=== PATIENT | female | born 1975 | race Caucasian/White ===

== ENCOUNTER 2018-11-08 19:09 | Emergency (ER) | payer MEDICAID, OTHER ==
[2018-11-08 19:28] VITALS: BP 147/79
--- NOTE | 2018-11-08 19:35 | UC ---
UC General HPI - HPI Summary HPI Summary: per triage, Onset one wk ago of vaginal odor, thick, creamy discharge; pt. has felt feverish past 2 days. Pt. denies urinary freqency or pain. hx BV and this is similar. doubts std but does have a new new partner - History of Current Complaint Chief Complaint: UCGU Stated Complaint: PERSONAL Time Seen by Provider: 11/08/18 19:25 Hx Obtained From: Patient Hx Last Menstrual Period: 10/27/18 Onset/Duration: Gradual Onset Timing: Constant Pain Intensity: 8 Associated Signs & Symptoms: Negative: Abdominal Pain, Fever - Allergy/Home Medications Allergies/Adverse Reactions: Allergies Allergy/AdvReac Type Severity Reaction Status Date / Time Penicillins Allergy Unknown Verified 11/08/18 19:19 Reaction Details Home Medications: Home Medications Amitriptyline TAB* [Elavil TAB*] 50 mg PO DAILY 11/08/18 [History Confirmed 03/17] Gabapentin [Neurontin] 300 mg PO TID 11/08/18 [History Confirmed 11/08/18] Venlafaxine EXT RELEASE CAP* [Effexor Xr CAP*] 225 mg PO DAILY 11/08/18 [ History Confirmed 11/08/18] busPIRone TAB* [Buspar *] 30 mg PO DAILY 11/08/18 [History Confirmed 11/08/18] hydroCHLOROthiazide [Hydrochlorothiazide] 12.5 mg PO DAILY 11/08/18 [History Confirmed 11/08/18] PMH/Surg Hx/FS Hx/Imm Hx - Additional Past Medical History Additional PMH: PCOS Cardiovascular History: Hypertension GI/ History: Gastroesophageal Reflux Psychological History: Anxiety, Depression - Surgical History Surgical History: Yes Surgery Procedure, Year, and Place: , 1996 1999, [facility]. Tubal Ligation , 1999, [facility] - Family History Known Family History: Positive: Unknown - Social History Alcohol Use: Occasionally Alcohol Amount: once a week Substance Use Type: None Smoking Status (MU): Heavy Every Day Tobacco Smoker Type: Cigarettes Amount Used/How Often: 1/2 PPD Length of Time of Smoking/Using Tobacco: 27 Years Have You Smoked in the Last Year: Yes Household Exposure Type: Cigarettes Review of Systems All Other Systems Reviewed And Are Negative: No Gastrointestinal: Negative: Abdominal Pain, Vomiting, Diarrhea, Nausea Genitourinary: Negative: Dysuria, Hematuria, Frequency, Urgency, Ulceration/ Lesion Physical Exam Triage Information Reviewed: Yes Appearance: Well-Appearing Vital Signs: Initial Vital Signs Temp 97.7 F 11/08/18 19:24 Pulse 107 11/08/18 19:24 Resp 24 11/08/18 19:24 BP 147/79 11/08/18 19:24 Pulse Ox 97 11/08/18 19:24 Vital Signs Reviewed: Yes Eyes: Positive: Conjunctiva Clear Neck: Positive: Supple Respiratory: Positive: Lungs clear, Normal breath sounds Cardiovascular: Positive: RRR, No Murmur Abdomen Description: Positive: Nontender, No Organomegaly, Soft Bowel Sounds: Positive: Present Pelvic Exam: Positive: External Exam Normal, Speculum Exam Normal - except some dryness, Bimanual Exam Normal Musculoskeletal: Positive: ROM Intact Neurological: Positive: Alert Psychological: Positive: Age Appropriate Behavior Skin Exam: Normal Course/Dx - Differential Dx - Multi-Symptom Differential Diagnoses: Other - pelvic exam showed some tissue dryness but no odor or discharge. pelvic cultures pending. pt notes hx BV with the same s/s's thus will start presumptive tx. - Diagnoses Provider Diagnosis: Vaginitis Discharge - Sign-Out/Discharge Documenting (check all that apply): Patient Departure All imaging exams completed and their final reports reviewed: No Studies - Discharge Plan Condition: Stable Disposition: HOME Prescriptions: metroNIDAZOLE VAGINAL 0.75%* 1 applic VAGINAL BEDTIME 5 Days #1 tube Patient Education Materials: Vaginitis (ED) Referrals: Colleen Licea MD [Primary Care Provider] - 7 Days - Billing Disposition and Condition Condition: STABLE Disposition: Home
[2018-11-09 22:36] LABS: Chlamydia trachomatis NAA Negative (Negative); Neisseria gonorrhoeae (GC) NAA Negative (Negative)
--- NOTE | 2018-11-10 09:15 | UC ---
- Progress Note Progress Note: Vaginal DNA comes back from November 08, 2018 as positive for Gardnerella and positive for Evelyn. Gonorrhea chlamydia intracranial negative. Patient was started on MetroGel for presumed Gardnerella on November 08, 2018. I have called in a prescription for Diflucan 150 mg to be used once a may repeat in 3 days when necessary. Nursing to call patient and let them know to go ahead and also treat for yeast infection and inform her of the rest of the results. Course/Dx - Diagnoses Provider Diagnoses: Vaginitis Discharge - Sign-Out/Discharge Documenting (check all that apply): Patient Departure All imaging exams completed and their final reports reviewed: No Studies - Discharge Plan Condition: Stable Disposition: HOME Prescriptions: Fluconazole 150 MG TAB* [Diflucan 150 MG TAB*] 150 mg PO ONCE #2 tablet metroNIDAZOLE VAGINAL 0.75%* 1 applic VAGINAL BEDTIME 5 Days #1 tube Patient Education Materials: Vaginitis (ED) Referrals: Colleen Licea MD [Primary Care Provider] - 7 Days - Billing Disposition and Condition Condition: STABLE Disposition: Home
== END 2018-11-08 19:59 | disposition home or self-care (01) ==
LOC: UCCORT 19:09
DX: N76.0 Acute vaginitis (principal); B96.89 Other specified bacterial agents as the cause of diseases classified elsewhere; B37.2 Candidiasis of skin and nail; B37.3 Candidiasis of vulva and vagina; Z88.0 Allergy status to penicillin; I10 Essential (primary) hypertension; F41.9 Anxiety disorder, unspecified; F32.9 Major depressive disorder, single episode, unspecified; F17.210 Nicotine dependence, cigarettes, uncomplicated
CPT/HCPCS: 87480; 87491; 87510; 87591; 87661; 99212; G0463